=== PATIENT | male | born 1975 | race Caucasian/White ===

== ENCOUNTER 2021-03-18 09:02 | Outpatient (CLI) | payer OTHER, SELFPAY ==
[2021-03-18 09:17] LABS: Basophils Absolute Auto 0.05 K/mm3 (0.00-0.10); Basophils Percent Auto 0.6 % (0.0-1.0); Eosinophils Absolute Auto 0.28 K/mm3 (0.02-0.50); Eosinophils Percent Auto 3.6 % (1.0-6.0); Hematocrit 43.4 % (40.0-54.0); Immature Granulocyte Absolute 0.02 K/mm3 (0.00-0.00); Immature Granulocyte Percent A 0.3 % (0.0-0.0); Lymphocytes Absolute Auto 2.74 K/mm3 (1.10-4.50); Lymphocytes Percent Auto 35.1 % (18.0-42.0); Mean Corpuscular HGB Conc 34.6 g/dL (32.0-36.0); Mean Corpuscular Volume 89.7 fL (78.0-102.0); Mean Platelet Volume 10.1 fl (8.7-11.0); Monocytes Percent Auto 6.4 % (2.0-11.0); Neutrophils Absolute Auto 4.2 K/mm3 (1.7-7.2); Platelet Count Result 177 K/mm3 (150-420); Red Blood Count 4.84 M/mm3 (4.70-6.10); Red Cell Distribution Width 12.3 % (11.6-14.4); White Blood Count 7.8 K/mm3 (4.8-10.8)
[2021-03-18 10:41] LABS: Alanine Aminotransferase 38 U/L (16-63); Albumin Level 4.2 g/dL (3.4-5.0); Alkaline Phosphatase 61 U/L (46-116); Anion Gap 10 mmol/L (8-16); Aspartate Amino Transferase 22 U/L (15-37); Bilirubin,Total 0.4 mg/dL (0.00-1.00); Blood Urea Nitrogen 19 mg/dL (7-18); Calcium 8.8 mg/dL (8.5-10.1); Carbon Dioxide 28 mmol/L (21-32); Chloride 105 mmol/L (98-108); Estimated Glomerular Filt Rate > 60; Glucose 108 mg/dL (70-99); Osmolality Calculated 299 mOsm/kg (285-295); Potassium 4.4 mmol/L (3.5-5.1); Sodium 143 mmol/L (136-145); Thyroid Stimulating Hormone 0.68 uIU/mL (0.36-3.74); Total Protein 7.1 g/dL (6.4-8.2)
== END 2021-03-18 09:03 | disposition home or self-care (01) ==
PROVIDERS: PCP Nurse Practitioner Family; Visit Provider Nurse Practitioner Family
DX: G43.909 Migraine, unspecified, not intractable, without status migrainosus (principal); Z00.00 Encounter for general adult medical examination without abnormal findings; E83.42 Hypomagnesemia
CPT/HCPCS: 36415; 80053; 83735; 84443; 85025

== ENCOUNTER 2023-02-18 06:27 | Emergency (ER) | payer BC, SELFPAY ==
[2023-02-18 06:30] VITALS: BP 149/102; PULSE 101; RESP 14; TEMP 37.2; O2SAT 97
[2023-02-18 06:41] VITALS: BP 166/105; PULSE 93; RESP 14; TEMP 36.8; O2SAT 97
[2023-02-18 07:18] LABS: Basophils Absolute Auto 0.1 K/mm3 (0.0-0.1); Basophils Percent Auto 0.4 % (0.2-1.2); Eosinophils Absolute Auto 0.4 K/mm3 (0-0.3); Eosinophils Percent Auto 2.2 % (0-4.4); Hematocrit 47.1 % (42.0-52.0); Hemoglobin 16.2 g/dL (14.0-18.0); Immature Granulocyte Absolute 0.12 K/mm3 (0.00-0.031); Immature Granulocyte Percent A 0.7 % (0-0.5); Lymphocytes Absolute Auto 3.49 K/mm3 (0.9-3.2); Lymphocytes Percent Auto 20.4 % (18.3-44.2); Mean Corpuscular HGB Conc 34.4 g/dl (32-36); Mean Corpuscular Hemoglobin 31.7 pg (26-34); Mean Corpuscular Volume 92.2 fl (80-100); Monocytes Absolute Auto 1.1 K/mm3 (0.1-0.6); Monocytes Percent Auto 6.4 % (2.6-8.5); Neutrophils Percent Auto 69.9 % (45.5-73.1); Platelet Count Result 201 k/mm3 (150-375); Red Blood Count 5.11 M/mm3 (4.6-6.20); Red Cell Distribution Width 12.5 % (11.5-14.5); White Blood Count 17.1 K/mm3 (4.5-10.0)
[2023-02-18 07:21] VITALS: BP 144/90; PULSE 88; RESP 16; O2SAT 97
[2023-02-18 07:31] LABS: Alanine Aminotransferase 23 U/L (6-50); Albumin Level 4.4 g/dL (3.5-5.1); Alkaline Phosphatase 76 U/L (38-126); Anion Gap 7 mmol/L (8-16); Aspartate Amino Transferase 25 U/L (17-59); Bilirubin,Total 1.2 mg/dL (0.2-1.3); Blood Urea Nitrogen 14 mg/dL (9-20); Calcium 8.9 mg/dL (8.4-10.2); Carbon Dioxide 28 mmol/L (22-30); Chloride 103 mmol/L (98-107); Estimated CRCL calculation 154 ml/min; Estimated Glomerular Filt Rate > 60; Glucose 117 mg/dL (65-110); Potassium 4.2 mmol/L (3.4-5.0); Sodium 138 mmol/L (137-145)
--- NOTE | 2023-02-18 07:37 | ED.GENADULT ---
HPI - General Adult General Chief complaint: Abdominal Pain Stated complaint: abd cyst Time Seen by Provider: 02/18/23 07:03 History of Present Illness HPI narrative: Patient is a 47-year-old male with history of cyst formation who presents ER with pain to the right suprapubic region. Began 5 days ago. Has become very tender and red. No fevers or chills or sweats. Began using upon arrival to ER. No difficulty with urination or defecation. Patient has had pilonidal excision previously. Related Data Allergies Allergy/AdvReac Type Severity Reaction Status Date / Time No Known Allergies Allergy Unverified 03/18/21 07:37 Review of Systems Review of Systems: All systems reviewed & are unremarkable except as noted in HPI and below Constitutional: Constitutional: Denies chills and Denies fever(s) Gastrointestinal: Gastrointestinal: Denies abdominal pain, Denies nausea and Denies vomiting Genitourinary: Genitourinary: Denies dysuria and Denies urinary frequency Integumentary/Breasts: Skin/Breast: Reports erythema and Denies skin ulcer Comments: Cystic abscess right suprapubic region PMFSH Past Medical History Medical History (Updated 02/18/23 @ 08:21 by Antonio Rico MD) Subcutaneous cyst Surgical History Surgical History History of appendectomy History of hand surgery History of nasal surgery Social History Social History Smoking status: Current some day smoker Tobacco type: cigars Alcohol intake: current Alcohol use details: social Substance use: never Substance use type: does not use Living arrangements: alone Occupation/Education: occupation Additional occupation/education comments: [employer] Gender identity (if verbalized by the patient): Male Exam Narrative: GENERAL: Well-appearing, well-nourished, and in no acute distress. HEAD: Normocephalic, atraumatic. ENT: Mucous membranes moist. EXTREMITIES: Normal range of motion. No edema. SKIN: Warm, dry, no rash. Right suprapubic cystic abscess with erythema. Mild tenderness. NEURO: Alert and oriented x3. PSYCH: Normal mood and affect. Course Course Emergency Course: Discussed case with Dr. Contreras. Patient offered admission but prefers to be home. There is no neutrophilic predominance his leukocytosis. Suspect is reactive and that symptoms will improve now that the cyst has been open. Patient be started on Bactrim DS and given Percocet for home. He will follow-up with Dr. Contreras in the next week. Vital Signs Vital signs: Vital Signs Temperature 98.9 F 02/18/23 06:30 Pulse Rate 101 H 02/18/23 06:30 Respiratory Rate 14 02/18/23 06:30 Blood Pressure 149/102 H 02/18/23 06:30 Pulse Oximetry 97 02/18/23 06:30 Oxygen Delivery Room Air 02/18/23 06:30 Temperature 98.3 F 02/18/23 06:41 Pulse Rate 88 02/18/23 07:21 Respiratory Rate 16 02/18/23 07:21 Blood Pressure 144/90 H 02/18/23 07:21 Pulse Oximetry 97 02/18/23 07:21 Oxygen Delivery Room Air 02/18/23 06:41 Procedures Abscess I/D suprapubic: Date of Incision: 02/18/23 Time of Incision: 08:00 Side (if applicable): right Local Anesthetic: lidocaine 2% and with epi Amount of anesthesia used (mL): 7 Technique: incised with #11 blade Packing used?: plain I&D Results: Pus and Blood (clot) Complications: pain Medical Decision Making Vital Signs Vital Signs: Vital Signs Temperature 98.9 F 02/18/23 06:30 Pulse Rate 101 H 02/18/23 06:30 Respiratory Rate 14 02/18/23 06:30 Blood Pressure 149/102 H 02/18/23 06:30 Pulse Oximetry 97 02/18/23 06:30 Oxygen Delivery Room Air 02/18/23 06:30 Temperature 98.3 F 02/18/23 06:41 Pulse Rate 88 02/18/23 07:21 Respiratory Rate 16 02/18/23 07:21 Blood Pressure 144/90 H 02/18/23 07:21 Pulse
[2023-02-18] MEDS: HYDROcodone/acetaminophen (*CRX) 5-325 MG TABLET 1 TAB PO (07:42)
[2023-02-18] MEDS: LIDO 1%/EPINEPHRINE 1:100,000 20 ML VIAL 10 ML INFILTRATE (07:42)
[2023-02-18] MEDS: LIDO 2%/EPINEPHRINE 1:100,000 20 ML VIAL (07:45)
[2023-02-18 08:35] VITALS: BP 143/91; PULSE 89; RESP 12; O2SAT 95
== END 2023-02-18 08:37 | disposition home or self-care (01) ==
PROVIDERS: Emergency Medicine; Emergency Provider Emergency Medicine
DX: L02.211 Cutaneous abscess of abdominal wall (principal); F17.290 Nicotine dependence, other tobacco product, uncomplicated
CPT/HCPCS: 10061; 36415; 80053; 85025; 99283; A9270

== ENCOUNTER 2023-08-17 10:08 | Outpatient (CLI) | payer BC, SELFPAY ==
--- NOTE | ~2023-08-17 | XR_ITS ---
Left Hand Technique: PA, oblique, and lateral views were obtained. Clinical History: Pain Findings: No acute fracture or dislocation is seen. Osseous alignment is anatomic. Joint spaces are p reserved. Soft tissues are unremarkable. Impression: Unremarkable left hand. Reviewed, dictated and finalized at location M. RMATION SYSTEMS SUPERVISOR Impression: Unremarkable left hand.
--- NOTE | ~2023-08-17 | XR_ITS ---
Right Hand Technique: PA, oblique, and lateral views were obtained. Clinical History: Pain Findings: No acute fracture or dislocation is seen. Osseous alignment is anatomic. Joint spaces are p reserved. Soft tissues are unremarkable. Impression: Unremarkable right hand. Reviewed, dictated and finalized at location M. 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
== END 2023-08-17 10:09 | disposition home or self-care (01) ==
LOC: CHSIMG 10:10
PROVIDERS: Visit Provider Orthopaedic Surgery
DX: M79.641 Pain in right hand (principal); M79.642 Pain in left hand
CPT/HCPCS: 73130

== ENCOUNTER 2023-09-23 09:04 | Outpatient (CLI) | payer BC, SELFPAY ==
--- NOTE | 2023-09-23 10:30 | NEURO_ITS ---
Impression: # Complains of numbness and pain in hands. # Bilateral Carpal Tunnel Syndrome. # Left ulnar neuropathy across the elbow. # Normal needle/EMG exam. Nerve Conduction Studies Anti Sensory Summary Table Stim Site NR Peak (ms) P-T Amp (?V) Site1 Site2 Delta-P (ms) Dist (cm) Taz (m/s) Left Median Anti Sensory (2-3nd Digit) Wrist 3.9 20.0 Wrist 2-3nd Digit 3.9 14.0 36 Wrist 4.0 7.9 Wrist 2-3nd Digit 3.9 14.0 36 Right Median Anti Sensory (2-3nd Digit) Wrist 3.8 20.1 Wrist 2-3nd Digit 3.8 14.0 37 Wrist 4.1 21.8 Wrist 2-3nd Digit 3.8 14.0 37 Left Radial Anti Sensory (Base 1st Digit) Wrist 1.8 25.2 Wrist Base 1st Digit 1.8 0.0 Right Radial Anti Sensory (Base 1st Digit) Wrist 2.3 17.0 Wrist Base 1st Digit 2.3 0.0 Left Ulnar Anti Sensory (5th Digit) Wrist 2.4 43.2 Wrist 5th Digit 2.4 14.0 58 Right Ulnar Anti Sensory (5th Digit) Wrist 2.5 11.3 Wrist 5th Digit 2.5 14.0 56 Motor Summary Table Stim Site NR Onset (ms) O-P Amp (mV) Site1 Site2 Delta-0 (ms) Dist (cm) Taz (m/s) Left Median Motor (Abd Poll Brev) Wrist 4.1 2.8 Elbow Wrist 5.6 31.0 55 Elbow 9.7 2.6 Right Median Motor (Abd Poll Brev) Wrist 3.9 2.8 Elbow Wrist 5.5 29.0 53 Elbow 9.4 2.5 Left Ulnar Motor (Abd Dig Minimi) Wrist 2.3 7.4 A Elbow Wrist 6.3 31.0 49 A Elbow 8.6 5.8 B Elbow Wrist 4.3 24.0 56 B Elbow 6.6 4.4 Right Ulnar Motor (Abd Dig Minimi) Wrist 2.3 6.7 A Elbow Wrist 6.0 32.0 53 A Elbow 8.3 5.6 F Wave Studies NR F-Lat (ms) L-R F-Lat (ms) Left Median (Mrkrs) (Abd Poll Brev) 31.41 0.07 Right Median (Mrkrs) (Abd Poll Brev) 31.49 0.07 Left Ulnar (Mrkrs) (Abd Dig Min) 31.25 0.27 Right Ulnar (Mrkrs) (Abd Dig Min) 31.53 0.27 EMG Side Muscle Nerve Root Ins Act Fibs Amp Dur Recrt Comment Right 1stDorInt Ulnar C8-T1 Nml Nml Nml Nml Nml Right Ext Indicis Radial (Post Int) C7-8 Nml Nml Nml Nml Nml Right Ext Digitorum Radial (Post Int) C7-8 Nml Nml Nml Nml Nml Right BrachioRad Radial C5-6 Nml Nml Nml Nml Nml Right PronatorTeres Median C6-7 Nml Nml Nml Nml Nml Right Abd Poll Brev Median C8-T1 Nml Nml Nml Nml Nml Left 1stDorInt Ulnar C8-T1 Nml Nml Nml Nml Nml Left Ext Indicis Radial (Post Int) C7-8 Nml Nml Nml Nml Nml Left Ext Digitorum Radial (Post Int) C7-8 Nml Nml Nml Nml Nml Left BrachioRad Radial C5-6 Nml Nml Nml Nml Nml Left PronatorTeres Median C6-7 Nml Nml Nml Nml Nml Left Abd Poll Brev Median C8-T1 Nml Nml Nml Nml Nml Right ABD Dig Min Ulnar C8-T1 Nml Nml Nml Nml Nml Left ABD Dig Min Ulnar C8-T1 Nml Nml Nml Nml Nml MTDD
== END 2023-09-23 09:05 | disposition home or self-care (01) ==
LOC: ANHNEURO 09:05
PROVIDERS: Visit Provider Orthopaedic Surgery
DX: R20.0 Anesthesia of skin (principal); G56.03 Carpal tunnel syndrome, bilateral upper limbs
CPT/HCPCS: 95886; 95911

== ENCOUNTER 2023-10-05 00:26 | Day surgery (SDC) | payer BC, SELFPAY ==
--- NOTE | 2023-09-28 13:36 | PC.NURSE ---
Report to the Outpatient Waiting Room, entrance under the green pavilion located off [facility], at time 1100 on date 10/05/23. Planned Procedure Time: 1200. Time changes happen often and if your time is changed the preop area will call you the afternoon before. - You and your visitor will be asked to self-screen and do not enter if you have any COVID symptoms. - A mask is optional within the hospital at this time. Patient may eat a light breakfast morning of procedure Take the following medications with a SIP of water the morning of surgery: N/A Please no make-up, nail trinidadian, hairspray, perfume, deodorant, or body powder the day of surgery. No jewelry (including any body piercings) or valuables the day of surgery, leave them at home. Please take a shower or bath the night before, or the morning of, surgery with an antibacterial soap. Wear comfortable, loose fitting clothing. Children are encouraged to wear pajamas. - Jewelry must be removed prior to entering the operating room. Rings and piercings that are not removed may be cut off. - The hospital will not accept responsibility for valuables. - Please leave all valuables, including medications, at home the day of surgery. If you are going home after surgery, a licensed lifter driver must drive you home. - NO public transportation without another adult if you receive anesthesia. - We recommend that an adult stay with you for 24 hours following discharge. - We also recommend that you do not drive, make important decision, drink alcoholic beverages, or take any drugs that were not prescribed by your health care provider for at least 24 hours after your discharge time. For Pediatric surgeries, we recommend two adults accompany the child home. Follow any additional instructions given to you from your surgeon. If you or anyone in your household have experienced Covid symptoms in the past week, please notify your surgeon or the nurse liaison at the phone number below for possible testing. Telephone instructions given to Patient- Jose Eduardo Brennan and asked if any additional questions and then verbalized understanding. Patient advised to call surgeon office or pre surgery nurse liaison [phone] if any additional questions.
[2023-09-28 13:40] VITALS: BMI 38.7
[2023-10-05] VITALS (8 sets, daily range): BP systolic 116–154; BP diastolic 66–97; PULSE 79–90; RESP 16–18; TEMP 36.3; O2SAT 95–97; BMI 38.5
--- NOTE | 2023-10-05 11:58 | WPDHPUPDATE1 ---
History and Physical Update Update Date/Time: 10/05/23 11:58 History and Physical has been reviewed, including an updated exam of the patient. There are NO changes in the patient's condition. Risks, benefits, and alternatives have been discussed and questions answered. Patient agrees to proceed with procedure.
[2023-10-05] MEDS: LIDO 1%/EPINEPHRINE 1:100,000 20 ML VIAL 15 ML INFILTRATE (12:28)
--- NOTE | 2023-10-05 13:30 | W.PM.PROC2 ---
Procedure Note - Detailed Date of Procedure 10/05/23 Pre-op Diagnosis Ruptured Epidermal Inclusion Cyst Rt Groin Post-op Diagnosis Same Procedure Performed Excision of ruptured right groin inclusion cyst was 7cm intermediate layered wound closure. Surgeon Himanshu Contreras MD Anesthesia Local Indications Patient is a 8-year-old gentleman a few months ago presented with a large subcutaneous abscess in the right groin region. The abscess was drained in the office and resolved. A couple weeks ago he presented with another abscess which was drained again the office in exact same position so this is likely due to a ruptured cyst. Presents now for excision of the ruptured cyst. Findings The cyst that was excised was [id number]. A 7cm intermediate layered wound closure was used to close the incision. Description of Procedure After informed consent was obtained patient brought to the operating room placed supine position. The area the right groin region was then prepped and draped usual sterile fashion. A time-out was then performed correctly identifying the patient as well as procedure to be performed. 1% lidocaine mixed with 0.5% Marcaine with some epinephrine was injected around the cyst for local anesthetic effect. I then made a transverse elliptical incision dissected down through the dermis skin with a scalpel. I then continued my dissection the subcutaneous tissue electrocautery and the chronic cyst cavity more cephalad about 2cm. I dissected around the cyst wall which was clearly ruptured and there was no drainage of any pus. Once I completely excised the cyst wall all the way down to the underlying inguinal ligament there appeared to be involvement of the inguinal ligament with chronic granulation tissue at the cyst wall. I did not want to violate the inguinal ligament with excision and so I proceeded to fulgurate all the chronic cyst and fibrotic tissue in the area electrocautery. The cyst measured [id number]. It was sent to pathology for examination. I irrigated out the incision sterile saline solution. Hemostasis was excellent. The was then closed utilizing interrupted 2-0 Vicryl sutures in the deeper subcutaneous tissues. There is then followed by layer of interrupted 3-0 Vicryl sutures the more superficial subcutaneous tissues. The skin edges were then approximated utilizing a running subcuticular 4 Monocryl suture. Incision was then cleaned the skin glue was applied. The patient tolerated the procedure well no complications. All sponges, needles, and instrument counts were correct at the end procedure. EBL was _20__cc. The patient was awakened and taken to recovery in stable and satisfactory condition. Implants None Estimated Blood Loss 20 Drains No Packing No Pathology Yes (Ruptured cyst to pathology) Complications No immediate complications Condition Stable Disposition PACU [facility] Billing Surgery - Charge Forward: Surgery Billing
== END 2023-10-05 13:37 | disposition home or self-care (01) ==
PROVIDERS: Visit Provider Surgery
PROC: (CPT 11406; principal; 2023-10-05 13:15)
DX: L72.0 Epidermal cyst (principal); F17.290 Nicotine dependence, other tobacco product, uncomplicated; Z98.890 Other specified postprocedural states
CPT/HCPCS: 11406; 12032; 88305

== ENCOUNTER 2023-10-08 00:22 | Day surgery (SDC) | payer BC, SELFPAY ==
--- NOTE | 2023-09-30 10:28 | PC.NURSE ---
Report to the Outpatient Waiting Room, entrance under the green pavilion located off [facility], at time 6:00 on date 10/08/23. Planned Procedure Time: 7:30. Time changes happen often and if your time is changed the preop area will call you the afternoon before. - You and your visitor will be asked to self-screen and do not enter if you have any COVID symptoms. - A mask is optional within the hospital at this time. Patients may have clear liquids (water, carbonated beverages, clear teas, apple juice) until 3 hours prior to surgery (4:30) with a maximum of 20 ounces. - No food from midnight until time of surgery Take the following medications with a SIP of water the morning of surgery: N/A DO NOT STOP ANY OF YOUR OTHER PRESCRIPTION MEDICATIONS PRIOR TO SURGERY ?EXCEPT THE FOLLOWING Medications to discontinue per physician: N/A Date to take last dose: N/A Please no make-up, nail nepali, hairspray, perfume, deodorant, or body powder the day of surgery. No jewelry (including any body piercings) or valuables the day of surgery, leave them at home. Please take a shower or bath the night before, or the morning of, surgery with an antibacterial soap. Wear comfortable, loose fitting clothing. - Jewelry must be removed prior to entering the operating room. Rings and piercings that are not removed may be cut off. - The hospital will not accept responsibility for valuables. - Please leave all valuables, including medications, at home the day of surgery. If you are going home after surgery, a licensed emergency vehicle driver must drive you home. - NO public transportation without another adult if you receive anesthesia. - We recommend that an adult stay with you for 24 hours following discharge. - We also recommend that you do not drive, make important decision, drink alcoholic beverages, or take any drugs that were not prescribed by your health care provider for at least 24 hours after your discharge time. Follow any additional instructions given to you from your surgeon. If you or anyone in your household have experienced Covid symptoms in the past week, please notify your surgeon or the nurse liaison at the phone number below for possible testing. Telephone instructions given to BELIA Talbot and asked if any additional questions and then verbalized understanding. Patient advised to call surgeon office or pre surgery nurse liaison [phone] if any additional questions.
[2023-09-30 10:31] VITALS: BMI 38.7
[2023-10-08] VITALS (7 sets, daily range): BP systolic 123–145; BP diastolic 72–97; PULSE 72–90; RESP 12–14; TEMP 36.2–36.8; O2SAT 93–98
--- NOTE | 2023-10-08 06:39 | WPDANESEPPF ---
Anes - Initial Pre Proc Eval Procedure: Operation Date: 10/08/23 07:30 Proposed Procedures p Left Carpal Tunnel Release - Aurelio Smith MD Date/Time: 10/08/23 06:39 Surgeon: Aurelio Smith MD Pre Op Diagnosis: Left Carpal Tunnel Syndrome Patient Data Age: 48 Gender: M Height: 1.83 m Weight: 129.5 kg Allergies Allergy/AdvReac Type Severity Reaction Status Date / Time No Known Allergies Allergy Verified 10/05/23 12:36 Patient hx anesthesia problems: none Family hx anesthesia problems: none Results Review: All pre-operative results and documents have been reviewed as part of the pre-operative evaluation. [facility] Past Medical History Medical History Left carpal tunnel syndrome Right carpal tunnel syndrome Subcutaneous cyst Surgical History Surgical History History of appendectomy History of hand surgery History of nasal surgery Family History Family History Father Skin cancer Mother Breast cancer Social History Social History Years smoked: 32 Smoking status: Current every day smoker Tobacco type: cigars Additional smoking assessment comments: CIGARILL[employer] Alcohol intake: current Drinks per week: 15 Substance use: never Substance use type: does not use Living arrangements: with family Occupation/Education: occupation Additional occupation/education comments: [employer] Gender identity (if verbalized by the patient): Male Spiritual care concerns: No Anes - Eval Final PreProcedure Day of Procedure 10/08/23 06:39 Patient weight: obese Heart: regular rate and rhythm Lungs: clear to auscultation Airway: Mallampati scale class II Neurological: alert and oriented Last oral intake: >/= 8 hours ASA classification: III Emergent: no Anesthetic plan: proceed Anesthesia type and monitoring: general LMA and standard monitoring Results Review: All pre-operative results and documents have been reviewed as part of the pre-operative evaluation. Informed Consent: The patient's anesthetic plan and its attendant risks and benefits were discussed with the patient/family/POA. Questions were solicited and answers provided to the satisfaction of the patient/family/POA.
[2023-10-08] MEDS: ACETAMINOPHEN 500 MG TABLET 1000 MG PO (06:50)
[2023-10-08] MEDS: KETOROLAC 15 MG/ML VIAL (*BKC) IV PUSH (06:50)
[2023-10-08] MEDS: LACTATED RINGERS 1,000 ML 30 ML IV CONT ×2 (06:50→08:08)
--- NOTE | 2023-10-08 07:23 | WPDHPUPDATE1 ---
History and Physical Update Update Date/Time: 10/08/23 07:23 History and Physical has been reviewed, including an updated exam of the patient. There are NO changes in the patient's condition. Risks, benefits, and alternatives have been discussed and questions answered. Patient agrees to proceed with procedure.
[2023-10-08] MEDS: ceFAZolin 3 GM/D5W 100 ML 100 ML IVPB (07:28)
[2023-10-08] MEDS: BUPIVACAINE/EPINEPHRINE 0.5% 50 ML VIAL 20 ML INFILTRATE (07:54)
[2023-10-08] MEDS: LIDOCAINE HCL 2% PF INJ 5 ML VIAL 20 ML INFILTRATE (07:55)
--- NOTE | 2023-10-08 08:16 | W.PM.PROC2 ---
Procedure Note - Detailed Date of Procedure 10/08/23 Pre-op Diagnosis Left Carpal Tunnel Syndrome Post-op Diagnosis Same Procedure Performed Left carpal tunnel release Surgeon Aurelio Smith MD [employer] social human services assistants Anesthesia General and Local ( 0.5% Marcaine with epi ) Indications The patient has history, exam findings, and electrodiagnostic findings consistent with bilateral carpal tunnel syndrome. Conservative treatment with bracing/ splinting, activity modifications, medication, ergonomics, injections has failed. Symptoms are daily and affect ability to use hand. The patient desires operative treatment. Description of Procedure After informed consent was given, the operative extremity was marked in the preoperative holding area. Intravenous antibiotics were given. The patient was taken to the operating room and underwent general anesthetic by the anesthesia team. A time-out was performed confirming patient, procedure, and operative site. Local infiltrate at the carpal tunnel was done with 0.5% marcaine. Prepping and draping was done using chloraprep skin solution with usual surgical sterile technique. Anatomic landmarks marked on skin. Hand was exsanguinated and arm tourniquet inflated to 225mmHg. Incision was made with #15 blade knife in skin crease on volar palm. Hemostasis was achieved with electrocautery. Careful dissection was carried down to the transverse carpal ligament. Retractors were placed. Ligament overlying median nerve was incised in line with skin incision using [place] blade. Proximal and distal release was done with metzenbaum scissors under direct visualization. Mosquito clamp was placed deep to ligament to protect nerve during release. The nerve was inspected and noted to be intact with mild flattening. Tendons had good excursion. The tourniquet was then released and pressure held. Bleeding points were coagulated with bipolar cautery. The wound was thoroughly irrigated with antibiotic solution. The skin was closed with 4-0 nylon interrupted suture. A sterile dressing was applied. Good capillary refill in the fingers and thumb was noted. The patient was transported to the recovery room in stable condition. All sponge, needle, instrument counts were correct at the end of the case. Estimated Blood Loss 1 Tourniquet Time Total Tourniquet Time: 9 Drains No Packing No Pathology None sent Complications None Condition Stable Disposition PACU [facility] Billing Surgery - Charge Forward: Surgery Billing ([id number])
== END 2023-10-08 09:25 | disposition home or self-care (01) ==
PROVIDERS: Visit Provider Orthopaedic Surgery
PROC: (CPT 64721; principal; 2023-10-08 07:30)
DX: G56.02 Carpal tunnel syndrome, left upper limb (principal); F17.290 Nicotine dependence, other tobacco product, uncomplicated; E66.9 Obesity, unspecified; Z68.38 Body mass index [BMI] 38.0-38.9, adult
CPT/HCPCS: 64721; A9270; J0690; J1100; J1170; J1885; J2001; J2250; J2405; J2704; J7120

== ENCOUNTER 2023-10-29 00:18 | Day surgery (SDC) | payer BC, SELFPAY ==
--- NOTE | 2023-10-19 14:22 | PC.NURSE ---
Report to the Outpatient Waiting Room, entrance under the green pavilion located off [facility], at time 1130 on date 10/29/23. Planned Procedure Time: 1330. Time changes happen often and if your time is changed the preop area will call you the afternoon before. - You and your visitor will be asked to self-screen and do not enter if you have any COVID symptoms. - A mask is optional within the hospital at this time. Patients may have clear liquids (water, carbonated beverages, clear teas, apple juice) until 3 hours prior to surgery with a maximum of 20 ounces. - No food from midnight until time of surgery Take the following medications with a SIP of water the morning of surgery: N/A DO NOT STOP ANY OF YOUR OTHER PRESCRIPTION MEDICATIONS PRIOR TO SURGERY ?EXCEPT THE FOLLOWING Medications to discontinue per physician: N/A Date to take last dose: N/A Please no make-up, nail tamazight, hairspray, perfume, deodorant, or body powder the day of surgery. No jewelry (including any body piercings) or valuables the day of surgery, leave them at home. Please take a shower or bath the night before, or the morning of, surgery with an antibacterial soap. Wear comfortable, loose fitting clothing. - Jewelry must be removed prior to entering the operating room. Rings and piercings that are not removed may be cut off. - The hospital will not accept responsibility for valuables. - Please leave all valuables, including medications, at home the day of surgery. If you are going home after surgery, a licensed logging truck driver must drive you home. - NO public transportation without another adult if you receive anesthesia. - We recommend that an adult stay with you for 24 hours following discharge. - We also recommend that you do not drive, make important decision, drink alcoholic beverages, or take any drugs that were not prescribed by your health care provider for at least 24 hours after your discharge time. Follow any additional instructions given to you from your surgeon. If you or anyone in your household have experienced Covid symptoms in the past week, please notify your surgeon or the nurse liaison at the phone number below for possible testing. Telephone instructions given to PT - GAMALIEL LOERA and asked if any additional questions and then verbalized understanding. Patient advised to call surgeon office or pre surgery nurse liaison [phone] if any additional questions.
[2023-10-19 14:24] VITALS: BMI 38.4
[2023-10-29] VITALS (7 sets, daily range): BP systolic 121–148; BP diastolic 74–96; PULSE 80–93; RESP 12–18; TEMP 36.6–36.7; O2SAT 96–98
--- NOTE | 2023-10-29 10:25 | WPDHPUPDATE1 ---
History and Physical Update Update Date/Time: 10/29/23 10:25 History and Physical has been reviewed, including an updated exam of the patient. There are NO changes in the patient's condition. Risks, benefits, and alternatives have been discussed and questions answered. Patient agrees to proceed with procedure.
[2023-10-29] MEDS: ACETAMINOPHEN 500 MG TABLET 1000 MG PO (12:06)
[2023-10-29] MEDS: KETOROLAC 15 MG/ML VIAL (*BKC) IV PUSH (12:06)
--- NOTE | 2023-10-29 12:19 | SUR.PREOP ---
PT HAS INCENTIVE SPIROMETER FROM PREVIOUS SURGERY, DENIES NEED FOR REINSTRUCTION. STATES HE HAS HIS INCENTIVE AT HOME.
--- NOTE | 2023-10-29 12:51 | P.PNAN_ITS ---
Anes - Initial Pre Proc Eval Procedure: Operation Date: 10/29/23 13:30 Proposed Procedures p Right Carpal Tunnel Release - Aurelio Smith MD Date/Time: 10/29/23 12:51 Surgeon: Aurelio Smith MD Pre Op Diagnosis: Right Carpal Tunnel Syndrome Patient Data Age: 48 Gender: M Height: 1.83 m Weight: 128.6 kg Last Vital Signs Temp 36.6 C 10/29/23 11:09 Pulse 93 10/29/23 11:09 Resp 18 10/29/23 11:09 BP 140/86 10/29/23 12:27 Pulse Ox 96 10/29/23 11:09 O2 Del Method Room Air 10/29/23 11:09 Allergies Allergy/AdvReac Type Severity Reaction Status Date / Time No Known Allergies Allergy Verified 10/29/23 12:11 Home Medications Medication Instructions Recorded Confirmed Type hydrocodone 7.5 mg-acetaminophen 1 tablet PO Q6H PRN pain #20 tabs 10/29/23 Rx 325 mg tablet Patient hx anesthesia problems: none Family hx anesthesia problems: none Results Review: All pre-operative results and documents have been reviewed as part of the pre- operative evaluation. [facility] Past Medical History Medical History Left carpal tunnel syndrome Right carpal tunnel syndrome Subcutaneous cyst Surgical History Surgical History History of appendectomy History of hand surgery History of nasal surgery Hx of excision of mass Excision of ruptured right groin inclusion cyst was 7cm intermediate layered wound closure 10/05/23 SAW Family History Family History Father Skin cancer Mother Breast cancer Social History Social History Years smoked: 32 Smoking status: Current every day smoker Tobacco type: cigars Additional smoking assessment comments: CIGARILL[employer] Alcohol intake: current Drinks per week: 15 Substance use: never Substance use type: does not use Living arrangements: with family Occupation/Education: occupation Additional occupation/education comments: [employer] Gender identity (if verbalized by the patient): Male Spiritual care concerns: No Anes - Eval Final PreProcedure Day of Procedure 10/29/23 12:51 Patient weight: obese Heart: regular rate and rhythm Lungs: clear to auscultation Airway: Mallampati scale class II Neurological: alert and oriented Last oral intake: >/= 8 hours ASA classification: III Emergent: no Anesthetic plan: proceed Anesthesia type and monitoring: general LMA and standard monitoring Results Review: All pre-operative results and documents have been reviewed as part of the pre- operative evaluation. Informed Consent: The patient's anesthetic plan and its attendant risks and benefits were discussed with the patient/family/POA. Questions were solicited and answers provided to the satisfaction of the patient/family/POA.
[2023-10-29] MEDS: ceFAZolin 3 GM/D5W 100 ML 100 ML IVPB (13:49)
[2023-10-29] MEDS: LACTATED RINGERS 1,000 ML 30 ML IV CONT (13:57)
--- NOTE | 2023-10-29 14:35 | W.PM.PROC2 ---
Procedure Note - Detailed Date of Procedure 10/29/23 Pre-op Diagnosis Right Carpal Tunnel Syndrome Post-op Diagnosis Same Procedure Performed RT CTR Surgeon Aurelio Smith MD Anesthesia General Indications 48 yo rt CTS by EMG/NCV. Presents for release Description of Procedure After informed consent was given, the operative extremity was marked in the preoperative holding area. Intravenous antibiotics were given. The patient was taken to the operating room and underwent conscious sedation by the anesthesia team. A time-out was performed confirming patient, procedure, and operative site. Local infiltrate at the carpal tunnel was done with 0.5% marcaine. Prepping and draping was done using chloraprep skin solution with usual surgical sterile technique. Anatomic landmarks marked on skin. Hand was exsanguinated and arm tourniquet inflated to 225mmHg. Incision was made with #15 blade knife in skin crease on volar palm. Hemostasis was achieved with electrocautery. Careful dissection was carried down to the transverse carpal ligament. Retractors were placed. Ligament overlying median nerve was incised in line with skin incision using confederated coos blade. Proximal and distal release was done with metzenbaum scissors under direct visualization. Mosquito clamp was placed deep to ligament to protect nerve during release. The nerve was inspected and noted to be intact with mild flattening. Tendons had good excursion. The tourniquet was then released and pressure held. Bleeding points were coagulated with bipolar cautery. The wound was thoroughly irrigated with antibiotic solution. The skin was closed with 4-0 nylon interrupted suture. A sterile dressing was applied. Good capillary refill in the fingers and thumb was noted. The patient was transported to the recovery room in stable condition. All sponge, needle, instrument counts were correct at the end of the case. Estimated Blood Loss 5 Tourniquet Time Total Tourniquet Time: 5 Drains No Packing No Pathology None sent Complications None Condition Stable Disposition PACU [facility] Billing Surgery - Charge Forward: Surgery Billing ([id number])
== END 2023-10-29 15:25 | disposition home or self-care (01) ==
PROVIDERS: Visit Provider Orthopaedic Surgery
PROC: (CPT 64721; principal; 2023-10-29 13:30)
DX: G56.01 Carpal tunnel syndrome, right upper limb (principal); F17.290 Nicotine dependence, other tobacco product, uncomplicated; E66.9 Obesity, unspecified; Z68.38 Body mass index [BMI] 38.0-38.9, adult
CPT/HCPCS: 64721; A9270; J0690; J1100; J1885; J2250; J2405; J2704; J7120

== ENCOUNTER 2024-11-03 09:58 | Outpatient (CLI) | payer BC, SELFPAY ==
[2024-11-03 10:58] LABS: Basophils Absolute Auto 0.1 K/mm3 (0.0-0.1); Basophils Percent Auto 0.6 % (0.2-1.2); Eosinophils Absolute Auto 0.2 K/mm3 (0-0.3); Eosinophils Percent Auto 2.5 % (0-4.4); Hematocrit 44.3 % (42.0-52.0); Hemoglobin 16.1 g/dL (14.0-18.0); Immature Granulocyte Absolute 0.09 K/mm3 (0.00-0.031); Immature Granulocyte Percent A 1.1 % (0-0.5); Lymphocytes Percent Auto 36.4 % (18.3-44.2); Mean Corpuscular HGB Conc 36.3 g/dl (32-36); Mean Corpuscular Hemoglobin 31.8 pg (26-34); Mean Corpuscular Volume 87.4 fl (80-100); Mean Platelet Volume 11.1 fl (7.4-10.4); Monocytes Absolute Auto 0.4 K/mm3 (0.1-0.6); Monocytes Percent Auto 4.6 % (2.6-8.5); Neutrophils Absolute Auto 4.7 K/mm3 (1.3-6.7); Neutrophils Percent Auto 54.8 % (45.5-73.1); Platelet Count Result 166 k/mm3 (150-375); Red Blood Count 5.07 M/mm3 (4.6-6.20); Red Cell Distribution Width 12.4 % (11.5-14.5); White Blood Count 8.5 K/mm3 (4.5-10.0)
--- OUTSIDE RECORDS SUMMARY | 2024-11-03 11:19 | XMS_ITS | Referral Summary ---
Author Organization [facility] Address [address] [place] [address] Care Team Providers Care Hvac Installer Name Role Phone Unavailable Primary Care Provider Unavailabl e Source Comments [facility],non-owned Affiliates and Associated Physician Practices is amultiple site organization consisting of ambulatory clinics and hospital sitesin [place], [place], [place]. This disclosure is being madepursuant to the Care Everywhere program and may not contain all information available regarding this patient. Last updated 18.[facility] [employer] Allergies No known active allergies Social History Tobacco Use Types Packs/Day Years Used Date Smoking Tobacco: Never Assessed Sex and Gender Information Value Date Recorded Sex Assigned at Not on file Gender Identity Not on file Sexual Orientation Not on file Plan of Treatment Not on file Administered Medications
--- OUTSIDE RECORDS SUMMARY | 2024-11-03 11:19 | XMS_ITS | Patient Health Summary ---
Author Organization [facility] Address [address] [place] [address] Care Team Providers Care Training Intern Name Role Phone Unavailable Primary Care Provider Unavailabl e Note from [facility],non-owned Affiliates and Associated Physician Practices is amultiple site organization consisting of ambulatory clinics and hospital sitesin [place], [place], [place] and [place]. This disclosure is being madepursuant to the Care Everywhere program and may not contain all information available regarding this patient. Last updated 18.[facility] Allergies No known active allergies Social History Tobacco Use Types Packs/Day Years Used Date Smoking Tobacco: Never Assessed Sex and Gender Information Value Date Recorded Sex Assigned at Not on file Gender Identity Not on file Sexual Orientation Not on file Procedures * SKIN TEST PPD - POINT OF CARE(Performed 12/21/2018) Performed for PPD screening test * SKIN TEST PPD - POINT OF CARE(Performed 11/11/2018) Performed for PPD screening test Results * SKIN TEST PPD - POINT OF CARE (12/21/2018) Only the most recent of2 resultswithin the time period is included. PPD 0 Other MISCELLANEOUS SAMPLE S / Unknown 12/21/2018 Keila Chen APRN-[facility] - POINT OF CARE ORDERABLES
--- OUTSIDE RECORDS SUMMARY | 2024-11-03 11:19 | XMS_ITS | Clinical Summary ---
Author Organization [facility] [employer] Address [address] [place] [address] Care Team Providers Care Outpatient Case Manager Name Role Phone Unavailable Primary Care Provider Unavailabl e Source Comments [facility] [employer],non-owned Affiliates and Associated Physician Practices is amultiple site organization consisting of ambulatory clinics and hospital sitesin [place], [place], [place]. This disclosure is being madepursuant to the Care Everywhere program and may not contain all information available regarding this patient. Last updated 18.[facility] [employer] Allergies No known active allergies Social History Tobacco Use Types Packs/Day Years Used Date Smoking Tobacco: Never Assessed Sex and Gender Information Value Date Recorded Sex Assigned at Not on file Gender Identity Not on file Sexual Orientation Not on file Plan of Treatment Health Maintenance Due Date Last Done Comments COLOGUARD (AGES 45-75) - COL ON CA SCREENING 1977 COLON MONITORING 1977 COLONOSCOPY - COLON CA SCREENING 1977 CT COLONOGRAPHY - COLON CA SCREENING 1977 Colorectal Cancer Screening 1977 FIT - COLON CA SCREENING 1977 FLEX SIG - COLON CA SCREENING 1977 LIPID TESTING 1977 HIV SCREENING 1992 HEPATITIS C SCREENING 06/22/1995 DTAP/TDAP/TD VACCINES (1 - Tdap) 1996 HEPATITIS B VACCINE (1 of 3 - 19+ 3-dose series) 1996 COVID-19 VACCINE (1 - 2023-2 5 season) 2024 INFLUENZA VACCINE (#1) 2024 DEPRESSION SCREENING 08/31/2024 ZOSTER VACCINE (1 of 2) 2027 HIB VACCINE Aged Out No longer eligi ble based on patient's age to complete this topic HPV VACCINE Aged Out No longer eligi ble based on patient's age to complete this topic MENINGOCOCCAL (Group B) VACCINE Aged Out No longer eligible based on patient's age to complete this topic MENINGOCOCCAL VACCINE Aged Out No charles georgiana eligible based on patient's age to complete this topic PNEUMOCOCCAL VACCINE Aged Out No long er eligible based on patient's age to complete this topic
[2024-11-03 11:26] LABS: Hemoglobin A1C 11.4 % (<5.7)
[2024-11-03 11:59] LABS: Creatinine Urine 63.5 mg/dL
[2024-11-03 12:02] LABS: MALB Creatinine Ratio 184.9 mg/g (0-30); Microalbumin Urine Random 117.4 mg/L (0-16.7)
[2024-11-03 16:19] LABS: Alanine Aminotransferase 24 U/L (6-50); Albumin Level 4.7 g/dL (3.5-5.1); Alkaline Phosphatase 91 U/L (38-126); Anion Gap 11 mmol/L (4-12); Aspartate Amino Transferase 29 U/L (17-59); Bilirubin,Total 0.8 mg/dL (0.2-1.3); Blood Urea Nitrogen 15 mg/dL (9-20); Calcium 9.4 mg/dL (8.4-10.2); Carbon Dioxide 21 mmol/L (22-30); Chloride 101 mmol/L (98-107); Estimated Glomerular Filt Rate > 60; Potassium 4.5 mmol/L (3.4-5.0); Sodium 133 mmol/L (137-145)
[2024-11-03 16:27] LABS: Cholesterol 240 mg/dL (0-200)
[2024-11-03 16:34] LABS: Triglycerides > 1575 mg/dL (<150)
[2024-11-03 16:45] LABS: LDL Cholesterol Direct < 60 mg/dL
[2024-11-03 17:01] LABS: Glucose 416 mg/dL (65-110)
== END 2024-11-03 09:59 | disposition home or self-care (01) ==
PROVIDERS: PCP Internal Medicine; Visit Provider Internal Medicine
DX: Z13.220 Encounter for screening for lipoid disorders (principal); E11.9 Type 2 diabetes mellitus without complications
CPT/HCPCS: 36415; 80053; 80061; 82043; 83036; 85025